=== PATIENT | female | born 1940 | race Caucasian/White ===

== ENCOUNTER 2016-06-08 16:23 | Emergency (ER) | payer OTHER ==
[~2016-06-08] VITALS: Ht 165.1 cm; Wt 74.9 kg
[2016-06-08 17:13] LABS: HEMATOCRIT 26.9 % (36.0-46.0); MCH 26.7 PG (29.0-34.0); MCHC 33.5 G/DL (30.0-36.0); MCV 79.8 FL (83-99); MEAN PLAT.VOLUME 11.8 uM^3 (9.5-12.4); PLATELET COUNT 218 K/uL (156-360); RED BLOOD COUNT 3.37 M/uL (3.80-5.20); WHITE BLOOD COUNT 6.8 K/uL (4.1-10.2)
[2016-06-08 17:22] LABS: CHLORIDE 106 mEq/L (99-109); POTASSIUM 3.9 mEq/L (3.7-5.4); SODIUM 136 mEq/L (136-147)
[2016-06-08 17:24] LABS: GLUCOSE 366 mg/dL (70-99)
[2016-06-08 17:25] LABS: ANION GAP 10 MEQ/L (2-14)
[2016-06-08 17:27] LABS: SERUM ETHYL ALCOHOL < 10 mg/dL
[2016-06-08 17:29] LABS: UREA NITROGEN (BUN) 53 mg/dL (9-23)
[2016-06-08 17:36] LABS: TROP-I INTERPRETATION NEGATIVE; TROPONIN-I 0.01 ng/mL (0.0-0.30)
[2016-06-08 17:39] LABS: GFR ESTIMATE (CALCULATED) 24 mL/min/
[2016-06-08 17:58] LABS: AMPHETAMINE NEGATIVE (500 ng/mL); BARBITURATES NEGATIVE (200 ng/mL); BENZODIAZEPINES NEGATIVE (150 ng/mL); COCAINE NEGATIVE (150 ng/mL); INTERNAL CONTROLS VALID? YES; METHADONE NEGATIVE (200 ng/mL); METHAMPHETAMINE NEGATIVE (500 ng/mL); OPIATES (MORPHINE) NEGATIVE (100 ng/mL); OXYCODONE NEGATIVE (100 ng/mL); PHENCYCLIDINE NEGATIVE (25 ng/mL); PROPOXYPHENE NEGATIVE (300 ng/mL); THC CANNABINOIDS NEGATIVE (50 ng/mL); TRICYCLIC ANTIDEPRESSANTS NEGATIVE (300 ng/mL)
[2016-06-08 19:33] LABS: MAGNESIUM 2.1 mg/dL (1.3-2.7)
[2016-06-08 19:37] LABS: TOTAL BILIRUBIN 0.3 mg/dL (0.0-1.0)
[2016-06-08 19:38] LABS: ALKALINE PHOSPHATASE 65 IU/L (3-129)
[2016-06-08 19:40] LABS: DIRECT BILIRUBIN 0.1 mg/dL (0.0-0.3)
[2016-06-08 22:25] VITALS: BP 139/63
== END 2016-06-08 22:26 | disposition short-term general hospital (02) ==
LOC: EME 16:23 → EDOF 19:05 → EME 19:05 → EDOF 21:18
PROVIDERS: Emergency Medicine
DX: R07.9 Chest pain, unspecified (principal); R94.31 Abnormal electrocardiogram [ECG] [EKG]; E11.9 Type 2 diabetes mellitus without complications; I10 Essential (primary) hypertension; M79.7 Fibromyalgia
CPT/HCPCS: 70450; 71020; 80048; 80076; 83735; 84484; 85027; 93005; 99281; 99285; G0378; G0480; J3480; J7030